=== PATIENT | female | born 2000 | race African-American/Black ===

== ENCOUNTER 2019-09-24 00:31 | Emergency (ER) | payer MEDICAID ==
[~2019-09-24] VITALS: Ht 165.1 cm; Wt 64.0 kg
[2019-09-24 03:32] VITALS: BP 125/70
== END 2019-09-24 03:32 | disposition home or self-care (01) ==
LOC: ER 00:31
DX: M25.512 Pain in left shoulder (principal)
CPT/HCPCS: 73030; 99283